=== PATIENT | male | born 1970 | race Caucasian/White ===

== ENCOUNTER 2017-06-29 08:16 | Day surgery (SDC) | payer BC ==
[~2017-06-29 08:16] MED LIST: Lactated Ringers 1,000 ML IV SCH; Lidocaine 1% 4 ML ONE; Lidocaine 1%/Sod Bicarbonate in NS 8.4% 1 ML Syringe PRN; Midazolam 1 MG/ML 2 ML SDV ONE; Propofol 200 MG/20 ML SDV ONE; Sodium Chloride 0.9% 10 ML Syringe FLUSH PRN; ceFAZolin 1 GM Vial ONE; fentaNYL 100 MCG/2 ML SDV ONE
--- NOTE | 2017-06-29 08:59 | PCM.PREANE ---
Preanesthetic Assessment - Anesthesia/Transfusion/Family Hx Anesthesia History: Prior Anesthesia Without Reaction Family History of Anesthesia Reaction: No Transfusion History: No Prior Transfusion(s) Intubation History: Unknown - Review of Systems General: No Symptoms Pulmonary: No Symptoms Cardiovascular: No Symptoms Gastrointestinal: No Symptoms Neurological: No Symptoms Other: Reports: None - Physical Assessment NPO Status Date: 06/28/17 NPO Status Time: 19:00 Pulse: 66 O2 Sat by Pulse Oximetry: 96 Respiratory Rate: 16 Blood Pressure: 121/74 Temperature: 36.6 C Height: 1.78 m Weight: 87.543 kg ASA Class: 1 Mental Status: Alert & Oriented x3 Airway Class: Mallampati = 2 Dentition: Reports: Normal Dentition, Caries Thyro-Mental Finger Breadths: 3 Mouth Opening Finger Breadths: 3 ROM/Head Extension: Full Lungs: Clear to Auscultation, Normal Respiratory Effort Cardiovascular: Regular Rate, Regular Rhythm, No Murmurs - Allergies Allergies/Adverse Reactions: Allergies Allergy/AdvReac Type Severity Reaction Status Date / Time sulfamethoxazole Allergy Rash Verified 06/29/17 08:14 [From Bactrim] trimethoprim [From Bactrim] Allergy Rash Verified 06/29/17 08:14 - Anesthesia Plan Pre-Op Medication Ordered: None - Acknowledgements Anesthesia Type Planned: MAC Pt an Appropriate Candidate for the Planned Anesthesia: Yes Alternatives and Risks of Anesthesia Discussed w Pt/Guardian: Yes Pt/Guardian Understands and Agrees with Anesthesia Plan: Yes PreAnesthesia Questionnaire - CURRENT (IN HOUSE) MEDS Current Meds: Current Medications Lactated Ringer's (Ringers, Lactated) 1,000 mls @ 125 mls/hr IV ASDIRECTED CAROLIN Stop: 06/29/17 23:00 Lidocaine/Sodium Bicarbonate (Buffered Lidocaine 1% In Ns 8.4%) 0.25 ml .XX ONETIME PRN PRN Reason: Prior to IV Start Stop: 06/29/17 18:00 Sodium Chloride (Saline Flush) 10 ml FLUSH ASDIRECTED PRN PRN Reason: Keep Vein Open Stop: 06/29/17 18:00 Discontinued Medications Cefazolin Sodium (Ancef) Confirm Administered Dose 2 gm .ROUTE .STK-MED ONE Stop: 06/29/17 07:52 Fentanyl (Sublimaze) Confirm Administered Dose 100 mcg .ROUTE .STK-MED ONE Stop: 06/29/17 07:53 Lidocaine HCl (Xylocaine-Mpf 1%) Confirm Administered Dose 4 mls @ as directed .ROUTE .STK-MED ONE Stop: 06/29/17 07:52 Midazolam HCl (Versed 1 Mg/Ml) Confirm Administered Dose 2 mg .ROUTE .STK-MED ONE Stop: 06/29/17 07:53 Propofol (Diprivan 20 Ml) Confirm Administered Dose 200 mg .ROUTE .STK-MED ONE Stop: 06/29/17 07:53
[2017-06-29] MEDS ORDERED: Lidocaine 1% 30 ML SDV ONE (09:03)
[2017-06-29] MEDS ORDERED: Lidocaine 1% with EPINEPHrine 1:100,000 20 ML MDV ONE (09:03)
--- NOTE | 2017-06-29 09:52 | PCM.OPNOTE ---
- General Post-Op/Procedure Note Date of Surgery/Procedure: 06/29/17 Operative Procedure(s): drainage and debridmont of hematoma of the left leg Pre Op Diagnosis: hematoma of left leg with necrotic skin Post-Op Diagnosis: Same Anesthesia Technique: MAC Primary Surgeon: Addi Adkins EBL in mLs: 0 Complications: None Condition: Good
--- NOTE | 2017-06-29 10:02 | PCM48HPAN ---
Post Anesthesia Note - EVALUATION WITHIN 48HRS OF ANESTHETIC Vital Signs in Normal Range: Yes Patient Participated in Evaluation: Yes Respiratory Function Stable: Yes Airway Patent: Yes Cardiovascular Function Stable: Yes Hydration Status Stable: Yes Pain Control Satisfactory: Yes Nausea and Vomiting Control Satisfactory: Yes Mental Status Recovered: Yes
[2017-06-29 10:08] VITALS: BP 107/72
--- NOTE | 2017-06-30 08:08 | OR ---
DATE OF OPERATION: 06/29/2017 SURGEON: Addi Adkins MD PREOPERATIVE DIAGNOSIS: Hematoma over the anterior tibial area of the left leg measuring 4 x 5 cm with necrosis of the central area of the skin. POSTOPERATIVE DIAGNOSIS: Hematoma over the anterior tibial area of the left leg measuring 4 x 5 cm with necrosis of the central area of the skin. OPERATION PERFORMED: Drainage of hematoma and removal of necrotic area of skin and packing open with half-inch Nu Gauze. ANESTHESIA: Procedure done under IV sedation. DESCRIPTION OF PROCEDURE: The patient was taken to the operating room, placed in the supine position, connected to monitoring equipment, given IV sedation. Left leg was prepped with Betadine, draped off in a sterile fashion. Central area of necrosis which measured about 2 x 2 cm was excised. Hematoma entered and evacuated. He was then packed open, dressed with Kerlix, and Lul. The patient instructed in wound care and will be followed up in the clinic. Tolerated the procedure. ESTIMATED BLOOD LOSS: 0 mL. MMODAL /[id number]
== END 2017-06-29 10:45 | disposition home or self-care (01) ==
LOC: JD.SDS 08:16
PROVIDERS: ATTEND Surgery
PROC: 0H9LXZZ Drainage of Left Lower Leg Skin, External Approach (ICD-10-PCS; principal; 2017-06-29)
DX: M79.81 Nontraumatic hematoma of soft tissue (principal); Z98.890 Other specified postprocedural states; Z79.899 Other long term (current) drug therapy; Z88.1 Allergy status to other antibiotic agents; Z79.1 Long term (current) use of non-steroidal anti-inflammatories (NSAID)
CPT/HCPCS: 10140; J2250; J3010; J7120; 00400; J0690; J2704